=== PATIENT | female | born 2000 | race Caucasian/White ===

== ENCOUNTER 2023-03-17 13:45 | Outpatient (RCR) | payer BC | END 2023-03-22 | disposition home or self-care (01) | LOC: MKS.ESL.PT | DX: M54.51 Vertebrogenic low back pain (principal) ==

== ENCOUNTER 2023-05-12 14:30 | Outpatient (RCR) | payer BC | END 2023-05-22 | disposition home or self-care (01) | LOC: MKS.ESL.PT | DX: M54.50 Low back pain, unspecified (principal) ==

== ENCOUNTER 2023-06-06 13:45 | Outpatient (RCR) | payer BC | END 2023-06-22 | disposition home or self-care (01) | LOC: PT.GENESIS | DX: M54.50 Low back pain, unspecified (principal) ==

== ENCOUNTER 2023-06-25 11:14 | Outpatient (RCR) | payer BC | END 2023-07-23 | disposition home or self-care (01) | LOC: PT.GENESIS | DX: M54.51 Vertebrogenic low back pain (principal) ==